=== PATIENT | male | born 1955 | race Caucasian/White ===

== ENCOUNTER → 2017-05-18 | Outpatient (CLI) | payer BC ==
[~2017-05-18] MED LIST: DIOVAN160 MG PO; GABAPENTIN300 MG PO; JANUMET 50-1,01 EACH PO; LISINOPRIL10 MG PO; LOSARTAN POTAS100 MG PO; LYRICA150 MG PO; NAPROSYN500 MG PO; NORVASC5 MG PO; Z.0.GLIPIZIDE5 MG; Z.0.LISINOPRIL40 MG; Z.0.SIMVASTATIN20 MG; Z.1.METFORMIN HCL100; ZOCOR20 MG PO; ZYRTEC10 M3 PO
--- NOTE | 2017-05-18 14:23 | Diagnostic Imaging Report ---
TECHNIQUE: Magnetic resonance imaging of the LEFT KNEE was performed WITHOUT injected contrast. HISTORY: Closed nondisplaced fracture, pain, missed a step coming down ladder COMPARISON: None available. FINDINGS: LIGAMENTS AND TENDONS: ACL: Intact, minimal intrasubstance degeneration. PCL: Intact Collateral ligaments: The medial collateral ligament is intact. Mild thickening and increased intrasubstance signal of the proximal fibular collateral ligament. Iliotibial band: Unremarkable Popliteal tendon: Intact Extensor mechanism: Intact, mild intrasubstance degeneration of the proximal and distal patellar tendon. JOINT: Menisci: Medial: A predominantly oblique tear of the body and posterior horn. Lateral: Complex tearing and attenuation, most notably the body, with peripheral extrusion of the remnants. Articular Cartilage: Medial Compartment: Low to intermediate grade erosion of the weightbearing cartilage. Lateral Compartment: Low-grade erosion of the weightbearing cartilage. Patellofemoral Compartment: Full-thickness erosions the patellar apex and adjacent lateral facet. Joint Fluid: Small nonspecific joint effusion with synovitis and multilobulated Lyon's cyst measuring up to 4 cm (AP) x 3.1 cm (ML) x 4.6 cm (CC). Fluid signal intensity contiguous with the inferior margin of the Lyon's cyst extending along the superficial border of the medial head of the gastrocnemius. BONES: No focal or infiltrative bone marrow replacing abnormality. No acute fracture. SOFT TISSUES: Otherwise, unremarkable. IMPRESSION: 1. No acute fracture. 2. 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 3. Reactive synovitis with associated small joint effusion and ruptured Lyon's cyst. Signed by: Dr. Ruslan Brewer D.O., M.M.M. on 05/18/2017 2:19 PM
== END ==
LOC: MRI 10:13
PROVIDERS: ATTEND Family Medicine
DX: S82.125A Nondisplaced fracture of lateral condyle of left tibia, initial encounter for closed fracture (principal)